=== PATIENT | female | born 1960 | race Caucasian/White ===

== ENCOUNTER 2018-01-04 15:41 | Outpatient (CLI) | payer BC | END 2018-01-04 15:42 | disposition home or self-care (01) | LOC: BICMAMMO 15:41 | PROVIDERS: ATTEND Obstetrics & Gynecology | DX: Z12.31 Encounter for screening mammogram for malignant neoplasm of breast (principal); N63.10 Unspecified lump in the right breast, unspecified quadrant; N63.20 Unspecified lump in the left breast, unspecified quadrant | CPT/HCPCS: 77063; 77067 ==

== ENCOUNTER 2018-11-26 07:51 | Outpatient (CLI) | payer BC ==
--- NOTE | 2018-11-26 09:31 | BD ---
BONE DENSITOMETRY: INDICATION: A 58-year-old female for postmenopausal osteoporosis screening. FINDINGS: Lumbar Spine: BMD (g/cm2) L1 0.815 T-Score: -1.6 L2 0.883 T-Score: -1.3 L3 0.886 T-Score: -1.8 L4 0.825 T-Score: -2.1 L1-L4 0.852 T-Score: -1.8 Femoral Neck: 0.751 T-Score: -0.9 Total Femur: 0.827 T-Score: -0.9 Impression: 1. Bone mineral density of the lumbar spine indicates osteopenia. 2. Bone mineral density of the femoral neck is within normal range. POS: [facility]
== END 2018-11-26 07:52 | disposition home or self-care (01) ==
LOC: BICMAMMO 07:51
PROVIDERS: ATTEND Internal Medicine Rheumatology
DX: M81.0 Age-related osteoporosis without current pathological fracture (principal); M85.88 Other specified disorders of bone density and structure, other site
CPT/HCPCS: 77080

== ENCOUNTER 2018-12-28 07:02 | Emergency (ER) | payer BC ==
[2018-12-28] MEDS ORDERED: Morphine 4 MG/ML VIAL ONE ×2 (07:34→10:45)
[2018-12-28] MEDS ORDERED: Ondansetron PF 4 MG/2 ML Vial ONE (07:35)
[2018-12-28 08:25] LABS: Bilirubin Negative (Negative); Blood, Urine Trace (Negative); Clarity CLEAR (Clear); Glucose, Urine (Dipstick) Negative (Negative); Leukocyte Negative (Negative); Nitrite Negative (Negative); Protein, Urine (Dipstick) Negative (Neg-Trace); Specific Gravity, Urine 1.022 (1.002-1.036)
[2018-12-28 08:27] LABS: Bacteria/HPF None Seen HPF (None Seen); Hyaline Casts/LPF 0-3 HYALINE CAST LPF (0-3 Hyaline); Squamous Epithelial 0-3 HPF (0-3); WBC/HPF 0-3 HPF (0-3)
[2018-12-28 08:29] LABS: Hemoglobin 10.6 g/dL (12.0-16.0); Mean Corpuscular HGB CONC 29.6 g/dL (32.0-36.0); Mean Corpuscular Hemoglobin 21.2 pg (27.0-31.0); Mean Corpuscular Volume 71.7 fL (78.0-98.0); Mean Platelet Volume 10.1 fL (7.4-10.4); Platelet Count 184 thou/uL (130-400); RBC Distribution Width 15.1 % (11.5-14.5); Red Blood Cell (RBC) Count 5.01 mill/uL (4.20-5.40); White Blood Cell (WBC) Count 12.3 thou/uL (4.8-10.8)
[2018-12-28 08:30] LABS: #Eosinphils 0.1 thou/uL (0.0-0.7); #Lymphocytes 1.2 thou/uL (1.20-3.40); #Monocytes 0.5 thou/uL (0.11-0.59); #Neutrophils 10.5 thou/uL (1.40-6.50); %Basophils 0.3 % (0.0-1.0); %Eosinophils 0.7 % (0.0-10.0); %Lymphocytes 10.1 % (21.0-51.0); %Monocytes 3.8 % (0.0-10.0); %Neutrophils 85.1 % (42.0-75.0)
[2018-12-28 08:47] LABS: ALT (SGPT) 31 U/L (8-55); AST (SGOT) 35 U/L (5-34); Albumin 4.5 g/dL (3.5-5.0); Alkaline Phosphatase 115 U/L (40-150); Anion Gap 16 mmol/L (10-20); BUN (Urea Nitrogen) 12 mg/dL (9.8-20.1); Bilirubin, Total 0.4 mg/dL (0.2-1.2); Calc. Creatinine Clearance 0 mL/min (70-130); Calcium 9.3 mg/dL (7.8-10.44); Carbon Dioxide 22 mmol/L (22-29); Chloride 104 mmol/L (98-107); Estimated GFR-MDRD 88; Globulin 3.6 g/dL (2.4-3.5); Glucose 108 mg/dL (70-105); Lipase 69 U/L (8-78); Potassium 4.5 mmol/L (3.5-5.1); Protein, Total 8.1 g/dL (6.0-8.3); Sodium 137 mmol/L (136-145)
--- NOTE | 2018-12-28 08:59 | CT ---
EXAM: CT Abdomen Pelvis W Con PROVIDED CLINICAL HISTORY: Right-sided rib pain that radiates to the epigastric region. Pain started last night. History of kayla kirsty bypass procedure. Patient reports nausea and difficulty taking deep breaths due to the pain COMPARISON: None available. FINDINGS: There is linear and patchy density at the left lung base probably related to atelectasis, but develop ing pneumonitis cannot be entirely excluded. Right lung base is clear. Postsurgical changes related to gastric bypass procedure are noted. There is a small hiatal hernia. T here is mild thickening involving the distal portion of the wall of the gastric pouch. There is fluid and inflammatory stranding seen adjacent to the area of gastric bypass changes and predominantl y seen in the anterior aspect of the abdomen and anterior to the left hepatic lobe. If patient has had recent postsurgical changes, findings could be related to residual fluid in this region. However, if the postsurgical changes are more remote in origin, these findings may be more acute. No free intraperitoneal gas is identified. A gastric leak cannot be entirely excluded. There is a small fluid collection measuring 1.5 cm adjacent to the area of thickening within the distal portion of the gastric pouch. Postsurgical changes related to cholecystectomy are noted. A subcentimeter too small to characterize hypodense lesion is seen in the right kidney. The liver, spleen, pancreas, bilateral adrenal glands, left kidney, abdominal aorta, incompletely dis tended urinary bladder, and uterus demonstrate a normal CT appearance. There is a small amount of stranding adjacent to the proximal descending colon with central area of f at density. Findings may be attributed to epiploic appendage on this, but an omental infarction is a possibility as well. No lymphadenopathy is seen. IMPRESSION: 1. Fluid and inflammatory changes seen within the upper abdomen in the epigastric region. In addition , there are postsurgical changes related to gastric bypass procedure with apparent thickening involving the gastric thakur of the distal portion of the gastric pouch. Fluid and inflammatory change s could be related to postsurgical changes if post surgical changes occurred recently. However, a gastric leak could not be entirely excluded.. There is suggestion of a small fluid collection measuri ng 1.5 cm adjacent to the area of thickening within the distal portion of the gastric pouch. No gas is seen within the small fluid collection. Infection related to small abscess collection cannot be en tirely excluded. 2. Inflammatory changes adjacent to the ascending colon which could be related to epiploic appendagit is versus an omental infarction. 3. Postcholecystectomy changes. 4. Small hiatal hernia. 5. Linear and patchy densities medial left lung base which may represent atelectasis. However, develo ping pneumonitis cannot be entirely excluded. 6. Above findings discussed with Dr. Yuan in the emergency department on 12/28/2018 at 0831 hour s.
[2018-12-28] MEDS ORDERED: Piperacillin/Tazobactam 4.5 GM VIAL ONE (09:11)
[2018-12-28 09:15] LABS: Hypochromia MODERATE=16-30 cells (100X) (0-5/hpf); MDiff Complete? YES; Microcytosis MODERATE=15-30 cells (100X) (0-5/hpf); Ovalocytes SLIGHT = 2-5 cells (100X) (0-1/hpf); Platelet Morphology Comment Appears Adequate; Polychromasia SLIGHT = 2-3 cells (100X) (0-2/hpf); Reflex for Review?? NO
[2018-12-28] MEDS ORDERED: Ketorolac Tromethamine 30 MG/ML VIAL ONE ×2 (11:06→13:47)
[2018-12-28] MEDS ORDERED: ISOVUE-370 76%-LOCM 1 ML ONE (15:03)
[2018-12-28] MEDS ORDERED: Fentanyl 100 MCG/2 ML VIAL ONE (17:15)
== END 2018-12-28 18:36 | disposition short-term general hospital (02) ==
LOC: ERS 07:02
DX: K91.89 Other postprocedural complications and disorders of digestive system (principal); M81.0 Age-related osteoporosis without current pathological fracture
CPT/HCPCS: 74177; 80053; 81003; 81015; 83690; 85025; 96365; 96367; 96375; 96376; J1885; J2270; J2405; J2543; J3010; J3370; Q9966

== ENCOUNTER 2019-01-24 10:09 | Outpatient (CLI) | payer BC ==
--- NOTE | 2019-01-24 11:01 | MMO ---
Bilateral MAMMO Bilat Screen [facility]. CLINICAL HISTORY: Patient is 58 years old and is seen for screening. The patient has no family history of breast cancer. The patient has no personal history of cancer. The patient has a history of right Cyst Aspiration in Jan, 2016 - benign and left Cyst Aspiration in December, - benign. VIEWS: The views performed were: bilateral craniocaudal with tomosynthesis and bilateral mediolateral oblique with tomosynthesis. FILMS COMPARED: The present examination has been compared to prior imaging studies performed at [facility] on 12/17/2014, 12/21/2015, 12/22/2015, 01/05/2017 and 01/04/2018. MAMMOGRAM FINDINGS: The breasts are heterogeneously dense, which could obscure a lesion on mammography. There are benign appearing densities seen in both breasts. There are no suspicious masses, suspicious calcifications, or new areas of architectural distortion. IMPRESSION: THERE IS NO MAMMOGRAPHIC EVIDENCE OF MALIGNANCY. A ROUTINE FOLLOW-UP MAMMOGRAM IN 1 YEAR IS RECOMMENDED. THE RESULTS OF THIS EXAM WERE SENT TO THE PATIENT. ACR BI-RADS Category 2 - Benign finding MAMMOGRAPHY NOTE: 1. A negative mammogram report should not delay a biopsy if a dominant of clinically suspicious mass is present. 2. Approximately 10% to 15% of breast cancers are not detected by mammography. 3. Adenosis and dense breasts may obscure an underlying neoplasm.
== END 2019-01-24 10:10 | disposition home or self-care (01) ==
LOC: BICMAMMO 10:09
PROVIDERS: ATTEND Obstetrics & Gynecology
DX: Z12.31 Encounter for screening mammogram for malignant neoplasm of breast (principal)
CPT/HCPCS: 77063; 77067

== ENCOUNTER 2019-08-28 16:22 | Outpatient (CLI) | payer BC ==
--- NOTE | 2019-08-28 16:50 | RAD ---
XR Shoulder Lt 2 View History: Pain and unspecified shoulder Comparison: None. Findings: No acute displaced fracture or malalignment. The ribs are intact. Low-grade narrowing of th e acromioclavicular joint. Impression: No acute displaced fracture or malalignment.
== END 2019-08-28 16:23 | disposition home or self-care (01) ==
LOC: BICRAD 16:22
PROVIDERS: ATTEND Family Medicine
DX: M25.512 Pain in left shoulder (principal)

== ENCOUNTER 2019-11-04 14:45 | Outpatient (CLI) | payer BC ==
--- NOTE | 2019-11-04 16:00 | BD ---
DEXA BONE DENSITY STUDY: Date: 11/04/2019 HISTORY: Postmenopausal. FINDINGS: Lumbar Spine: BMD (g/cm2) L1 0.730 T-Score: -2.4 L2 0.830 T-Score: -1.8 L3 0.811 T-Score: -2.5 L4 0.734 T-Score: -3.0 Total 0.777 T-Score: -2.5 Left Femoral Neck: 0.593 T-Score: -2.3 Total Femur: 0.722 T-Score: -1.8 IMPRESSION: Osteopenia of left femoral neck and osteoporosis of lumbar spine. POS: [facility]
== END 2019-11-04 14:46 | disposition home or self-care (01) ==
LOC: BICMAMMO 14:45
PROVIDERS: ATTEND Internal Medicine Rheumatology
DX: M81.0 Age-related osteoporosis without current pathological fracture (principal); M85.852 Other specified disorders of bone density and structure, left thigh
CPT/HCPCS: 77080

== ENCOUNTER 2020-02-07 08:09 | Outpatient (CLI) | payer BC ==
--- NOTE | 2020-02-07 08:43 | MMO ---
Bilateral MAMMO Bilat Screen [facility]. CLINICAL HISTORY: Patient is 59 years old and is seen for screening. The patient has no family history of breast cancer. The patient has no personal history of cancer. The patient has a history of left Cyst Aspiration in 2019 - benign, right Cyst Aspiration in Jan, 2016 - benign and left Cyst Aspiration in December, - benign. VIEWS: The views performed were: bilateral craniocaudal with tomosynthesis and bilateral mediolateral oblique with tomosynthesis. FILMS COMPARED: The present examination has been compared to prior imaging studies performed at [facility] on 12/22/2015, 01/05/2017, 01/04/2018 and 01/24/2019. This study has been interpreted with the assistance of computer-aided detection. MAMMOGRAM FINDINGS: The breasts are heterogeneously dense, which could obscure a lesion on mammography. Scattered nodules are seen, some slightly larger and some slightly smaller, compatible with fluctuating cysts. There are no suspicious masses, suspicious calcifications, or new areas of architectural distortion. IMPRESSION: THERE IS NO MAMMOGRAPHIC EVIDENCE OF MALIGNANCY. A ROUTINE FOLLOW-UP MAMMOGRAM IN 1 YEAR IS RECOMMENDED. THE RESULTS OF THIS EXAM WERE SENT TO THE PATIENT. ACR BI-RADS Category 2 - Benign finding MAMMOGRAPHY NOTE: 1. A negative mammogram report should not delay a biopsy if a dominant of clinically suspicious mass is present. 2. Approximately 10% to 15% of breast cancers are not detected by mammography. 3. Adenosis and dense breasts may obscure an underlying neoplasm. Reported by: MAYRA VAUGHAN MD Electonically Signed: [id number]
== END 2020-02-07 08:10 | disposition home or self-care (01) ==
LOC: BICMAMMO 08:09
PROVIDERS: ATTEND Obstetrics & Gynecology
DX: Z12.31 Encounter for screening mammogram for malignant neoplasm of breast (principal)
CPT/HCPCS: 77063; 77067

== ENCOUNTER 2021-02-12 08:15 | Outpatient (CLI) | payer BC | END 2021-02-12 08:16 | disposition home or self-care (01) | LOC: BICMAMMO 08:15 | PROVIDERS: ATTEND Obstetrics & Gynecology | DX: Z12.31 Encounter for screening mammogram for malignant neoplasm of breast (principal) | CPT/HCPCS: 77063; 77067 ==

== ENCOUNTER 2022-05-24 13:42 | Outpatient (CLI) | payer BC | END 2022-05-24 13:43 | disposition home or self-care (01) | LOC: BICMAMMO 13:42 | PROVIDERS: ATTEND Obstetrics & Gynecology | DX: Z12.31 Encounter for screening mammogram for malignant neoplasm of breast (principal); M81.0 Age-related osteoporosis without current pathological fracture; M85.851 Other specified disorders of bone density and structure, right thigh; M85.852 Other specified disorders of bone density and structure, left thigh; Z98.890 Other specified postprocedural states | CPT/HCPCS: 77063; 77067; 77080 ==